=== PATIENT | male | born 1990 | race Caucasian/White ===

== ENCOUNTER 2017-08-10 00:08 | Emergency (ER) | payer BC ==
[~2017-08-10] VITALS: Ht 177.8 cm; Wt 79.4 kg
--- NOTE | 2017-08-10 00:30 | NUR ---
PT PRESENTED TO THE ER WITH A C/O RLQ ABD PAIN THAT RADIATES TO THE BACK AND RT GROIN.
--- NOTE | 2017-08-10 00:40 | NUR ---
PT LEFT FOR CT.
[2017-08-10] MEDS ORDERED: ONDANSETRON HCL/PF 4 MG/2 ML VIAL ONE (00:53)
[2017-08-10] MEDS ORDERED: KETOROLAC TROMETHAMINE INJ 30 MG/ML VIAL ONE ×2 (00:53→02:21)
--- NOTE | 2017-08-10 00:55 | NUR ---
PT RETURNED FROM CT.
[2017-08-10] MEDS ORDERED: ONDANSETRON HCL/PF 4 MG/2 ML VIAL IVP ONE (01:00)
[2017-08-10] MEDS ORDERED: KETOROLAC TROMETHAMINE INJ 30 MG/ML VIAL IV ONE ×2 (01:00→02:30)
[2017-08-10] MEDS ORDERED: IV NS 0.9% 1,000 ML BAG IV ONE ×2 (01:00→02:00)
[2017-08-10 01:02] LABS: BASOPHILS % (AUTO) 0.3 % (0.0-2.0); EOSINOPHILS # (AUTO) 0.3 /CMM (0.0-0.7); EOSINOPHILS % (AUTO) 3.2 % (0.0-6.0); HEMATOCRIT 49 % (39-51); LYMPHOCYTES # (AUTO) 1.8 /CMM (0.8-4.8); LYMPHOCYTES % (AUTO) 20.5 % (20.0-44.0); MEAN CORPUSCULAR HEMOGLOBIN 28 PG (26.0-33.0); MEAN CORPUSCULAR HGB CONC 33 g/dl (31.0-36.0); MEAN CORPUSCULAR VOLUME 85 fL (80-96); MONOCYTES # (AUTO) 0.5 /CMM (0.1-1.30); MONOCYTES % (AUTO) 5.2 % (2.0-12.0); NEUTROPHILS # (AUTO) 6.2 /CMM (1.8-8.9); NEUTROPHILS % (AUTO) 70.8 % (43.0-81.0); PLATELET COUNT (AUTO) 260 /CMM (150-450); RDW COEFFICIENT OF VARIATION 14.1 (11.5-15.0); RED BLOOD CELL COUNT(AUTO) 5.78 MIL/uL (4.5-6.0); WHITE BLOOD COUNT (AUTO) 8.8 K/uL (4.3-11.0)
[2017-08-10 01:20] LABS: CALCIUM, SERUM 9.6 mg/dL (8.5-10.1); CREATININE 1.1 mg/dL (0.6-1.3); POTASSIUM 4.1 mmol/L (3.5-5.1)
[2017-08-10 01:31] LABS: ALBUMIN 4.6 g/dL (3.4-5.0); BILIRUBIN,DIRECT 0.1 mg/dL (0.0-0.2); BILIRUBIN,TOTAL 0.7 mg/dL (0.2-1.0); TOTAL PROTEIN, SERUM 7.7 g/dL (6.4-8.2)
--- NOTE | 2017-08-10 02:19 | NUR ---
URINE SAMPLE OBTAINED.
[2017-08-10 02:20] LABS: APPEARANCE,URINE CLEAR (CLEAR); BILIRUBIN,URINE 2+ (NEGATIVE); BLOOD, URINE 3+ Ery/uL (NEGATIVE); COLOR,URINE BROWN (YELLOW); KETONES,URINE 3+ (NEGATIVE); LEUKOCYTE ESTERASE ,URINE NEGATIVE (NEGATIVE); NITRITE, URINE NEGATIVE (NEGATIVE); PROTEIN,URINE 1+ mg/dl (NEGATIVE); UGLUCOSE NEGATIVE (NEGATIVE); UROBILINOGEN,URINE 0.2 EU/dL (0.2)
[2017-08-10 02:25] LABS: BACTERIA,URINE Rare /HPF (None Seen); RBC,URINE 21-50 /HPF (0-2); SQUAMOUS EPITHELIAL CELL,UR Few /HPF (None Seen)
--- NOTE | 2017-08-10 02:26 | NUR ---
PT STATED THAT HIS PAIN INCREASED. DR. WRIGHT NOTIFIED. NEW ORDERS GIVEN.
--- NOTE | 2017-08-10 02:51 | NUR ---
Patient discharged to home in stable condition. Written and verbal after care instructions given. Patient verbalizes understanding of instruction.IV removed. Catheter intact and site benign. Pressure and 4x4 applied to site. No bleeding noted. PT AMBULATED OUT WITH A STEADY GAIT. PT'S GIRLFRIEND IS DRIVING THE PT HOME. VSS.
[2017-08-10 02:52] VITALS: BP 148/85
== END 2017-08-10 02:53 | disposition home or self-care (01) ==
LOC: ER 00:11
DX: N20.0 Calculus of kidney (principal); R11.0 Nausea
CPT/HCPCS: 36415; 74176; 80048; 80076; 81001; 82962; 83690; 85025; 87086; 96361; 96374; 96375; 99285; A4606; J1885 ×2; J2405; J7030 ×2; Z7610; 81000-TC